=== PATIENT | female | born 1950 | race Caucasian/White ===

== ENCOUNTER 2024-03-17 11:03 | Emergency (ER) | payer MEDICARE ==
[2024-03-17] MEDS: traMADol 50 MG Tab PO ONE (12:12)
[2024-03-17] MEDS: Orphenadrine 100 MG Tab.ER PO ONE (12:14)
== END 2024-03-17 13:12 | disposition home or self-care (01) ==
LOC: LL.ED 11:03
DX: M25.551 Pain in right hip (principal); M25.552 Pain in left hip; M54.50 Low back pain, unspecified; Z87.891 Personal history of nicotine dependence; W19.XXXA Unspecified fall, initial encounter
CPT/HCPCS: 72131; 72192; 99283; A9270-GY